=== PATIENT | female | born 2000 | race Caucasian/White ===

== ENCOUNTER 2019-04-14 09:17 | Emergency (ER) | payer OTHER ==
[~2019-04-14] VITALS: Ht 180.3 cm; Wt 81.8 kg
[~2019-04-14 09:17] MED LIST: PRED20TA PO
[2019-04-14] MEDS ORDERED: NS 1,000 ML IV ONE (10:00)
[2019-04-14] MEDS ORDERED: METOCLOPRAMIDE INJ 10MG/2ML VIAL (J2765) IV ONE (11:00)
[2019-04-14] MEDS ORDERED: KETOROLAC 30 MG/ML VIAL (J1885) IV ONE (11:00)
[2019-04-14] MEDS ORDERED: diphenhydrAMINE INJ 50MG/ML VIAL (J1200) IV ONE (11:00)
[2019-04-14] MEDS ORDERED: ACETAMINOPHEN 500 MG TAB PO ONE (11:00)
[2019-04-14 14:33] VITALS: BP 108/63
== END 2019-04-14 14:37 | disposition home or self-care (01) ==
LOC: EDBD 09:17 → M ED 09:17
DX: G43.909 Migraine, unspecified, not intractable, without status migrainosus (principal)
CPT/HCPCS: 80047; 84702; 96361; 96374; 96375; 99285; J1200; J1885; J2765

== ENCOUNTER 2019-08-21 13:50 | Emergency (ER) | payer OTHER ==
[~2019-08-21] VITALS: Ht 180.3 cm; Wt 79.5 kg
[2019-08-21] MEDS ORDERED: PRENTAB9 PO (14:12)
[2019-08-21 14:33] LABS: BASO # 0.1 10^3/uL (0.0-0.2); BASO % 0.7 % (0.0-1.0); EOS # 0.1 10^3/uL (0.0-0.5); EOS % 1.3 % (0.0-3.0); HEMATOCRIT 40.2 % (36.0-47.0); HEMOGLOBIN 13.5 g/dl (12.0-15.5); LYMPH # 1.3 10^3/uL (1.5-5.0); LYMPH % 15.5 % (24.0-44.0); MEAN CORPUSCULAR HEMOGLOBIN 30.3 pg (27.0-33.0); MEAN CORPUSCULAR HGB CONC 33.6 g/dl (32.0-36.5); MEAN CORPUSCULAR VOLUME 90.1 fl (80.0-96.0); MONO % 11.3 % (0.0-5.0); NEUTROPHILS % 70.8 % (36.0-66.0); PLATELET COUNT, AUTOMATED 311 10^3/uL (150-450); RED BLOOD COUNT 4.46 10^6/uL (4.00-5.40); WHITE BLOOD COUNT 8.5 10^3/uL (4.0-10.0)
--- NOTE | 2019-08-21 15:06 | REP ---
Head CT without contrast: History: Seizure. Question of a fall. Comparison study: No comparison study. CT findings: Bone window settings demonstrate an intact bony calvarium. There is no evidence of skull fracture or incidental bony calvarial lesion. The visualized paranasal sinuses appear clear. No intraorbital abnormality is seen. On soft tissue window setting images; the lateral, third, and fourth ventricles are normal in size and position. Patterson-white differentiation pattern is normal above and below the tentorium. There are is no evidence of intracranial hemorrhage. No mass, edema, infarction, or midline shift is seen. No extra-axial fluid collection is appreciated. Impression: Negative noncontrast head CT. Electronically Signed by London Cruz MD 08/21/2019 02:57 P
--- NOTE | 2019-08-21 15:10 | REP ---
CT study of the cervical spine without contrast: History: Seizure. Question of a fall. Vertebral point tenderness. Technique: Helical scanning is acquired and overlapping 2 mm high resolution axial images were generated and reviewed at bone and soft tissue window settings. Coronal and sagittal multiplanar re-formations images are generated. CT findings: There is no evidence of cervical spine element fracture. No skull base fracture is seen. Cervical vertebral body heights are preserved. Alignment is normal. There is some straightening of the normal cervical lordosis. Facet joints are normally aligned bilaterally at each cervical level on multiplanar re-formations images. There is no evidence of intraspinal or paraspinal hematoma. No extra vertebral abnormality is seen. Impression: Negative CT study of the cervical spine without contrast. No fracture seen. Electronically Signed by London Cruz MD 08/21/2019 03:01 P
[2019-08-21 15:22] LABS: BLOOD UREA NITROGEN 8 MG/DL (7-18); CALCIUM LEVEL 9.1 MG/DL (8.5-10.1); CARBON DIOXIDE LEVEL 26 MEQ/L (21-32); CHLORIDE LEVEL 106 MEQ/L (98-107); CREATININE FOR GFR 0.52 MG/DL (0.55-1.30); GLUCOSE, FASTING 81 MG/DL (70-100); HCG, SERUM QUANTITATIVE 65914 MIU/ML; SODIUM LEVEL 138 MEQ/L (136-145)
[2019-08-21 16:15] VITALS: BP 118/67
== END 2019-08-21 17:22 | disposition home or self-care (01) ==
LOC: M ED 13:50 → EDBD 13:50 → M ED 17:22
DX: G43.909 Migraine, unspecified, not intractable, without status migrainosus (principal); R55 Syncope and collapse; G40.909 Epilepsy, unspecified, not intractable, without status epilepticus; Z3A.01 Less than 8 weeks gestation of pregnancy